=== PATIENT | female | born 1970 | race Two or more races ===

== ENCOUNTER 2024-12-18 18:38 | Inpatient (IN) | payer OTHER ==
[~2024-12-18] VITALS: Ht 162.6 cm; Wt 90.0 kg
--- NOTE | 2024-12-18 18:59 | ED.PDOC ---
HPI Comments Offley: HPI: Poor Historian. 54 y.o female presents to the ED for a chief complaint of substernal chest pain and nausea that started one week ago. Patient describes pain as sharp, intermittent, diffuse across her chest, and worsens with deep inspiration and on movement. Patient denies any SOB, vomiting, fever, chills, or leg swelling. Vitals BP: 127/72 HR: 77 Temp:98.1 F RR: 18 SPO2: 100% RA Past medical history: Depression, Anxiety and arthritis Past surgical history: Hysterectomy Allergies: Denies REVIEW OF SYSTEMS: CONSTITUTIONAL: Denies acute: fever, diaphoresis, chills, generalized weakness. HEAD: Denies acute: headache, photophobia Eyes: Denies acute: Double vision, vision loss, eye pain, eye discharge. EARS: Denies acute: tinnitus, hearing loss, ear discharge, ear pain, THROAT: Denies acute: sore throat, swelling, difficulty swallowing , pain with swallowing, change in voice. NECK: Denies acute: neck pain, neck swelling, stiff neck. HEART: Denies acute : palpitations, LUNGS: Denies acute: SOB, wheezing, cough, hemoptysis ABDOMEN: Denies acute: abdominal pain, Nausea, Vomiting, diarrhea, melena , hematemesis, hematochezia SKIN: Denies acute: rash, redness, lesions, itchiness. EXTREMITIES: Denies acute: calf pain, numbness, tingling, weakness, denies pain in extremity. Denies acute: Low back pain. Neuro: Denies acute: focal neurological deficit, motor or sensory focal neurological deficit, tremors, seizure like activity, confusion, dizziness, change in mental status, loss of bowel or bladder function, cauda equina like symptoms. : Denies acute: dysuria, hematuria, flank pain, increase in urinary frequency. PSYCH: Denies acute: hallucination, suicidal ideation, homicidal ideation. FEMALE: Denies acute: abnormal vaginal bleeding, foul odor, unusual discharge. PHYSICAL EXAM: General: no acute distress, awake and alert. Head: normocephalic, atraumatic. Neck: supple, trachea is midline, no swelling. Throat: Normal phonation. Eyes:, no erythema, no purulent discharge, no proptosis, no icterus. Heart: regular rate, regular rhythm, no significant murmur appreciated. Lungs: no apparent respiratory distress, Able to speak in full sentences. No wheezing, no rhonchi, no crackles. No stridors Clear to auscultation bilaterally. Abdomen: non tender to palpation, non distended, soft, no guarding, no rebound, + bowel sounds. Neuro: Awake, Alert, oriented to name, self, situation, follows commands GCS=15. Speech is normal. Skin: no petechia, no purpura, no cyanosis, non-pale, not jaundice. Lower extremities: --no - Pitting edema no deformity, no focal swelling, no calf TTP. Makes eye contact. moves all four extremities. Face: no apparent facial droop. Ambulating in the ED independently. 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 Was a procedure done?: No CP Differential Dx Differential Diagnosis: N/A Differential Diagnosis: Angina, Chest Wall Pain, Pericarditis, Other (Ddx include but not limitied to gastritis, musculoskeletal pain, radiculopathy, atypical chest pain, dissection, aneurysm, ACS, unstable angina, hiatal hernia, GERD, anxiety, costochondritis, PE, pneumothroax, neoplasm, cardiac ischemia, d rug abuse, anemia.) X-Ray, Labs, Meds, VS Vital Signs Date Time Temp Pulse Resp B/P (MAP) Pulse Ox O2 Delivery O2 Flow Rate FiO2 12/18/24 19:38 68 12/18/24 18:44 78 12/18/24 18:40 98.1 77 18 127/72 (90) 100 Lab Test 12/18/24 19:51 12/18/24 18:51 Range/Units Troponin I High Sensitivity < 3 L < 3 L </=34 ng/L White Blood Count 8.5 4.4-10.8 10^3/uL Red Blood Count 4.36 4.0-5.20 10^6/uL Hemoglobin 12.6 12.2-16.2 g/dL Hematocrit 38.2 36.0-46.0 % Mean Corpuscular Volume 87.7 80.0-100.0 fL Mean Corpuscular Hemoglobin 28.9 28.0-32.0 pg Mean Corpuscular Hemoglobin Concent 33.0 32.0-36.0 g/dL Red Cell Distribution Width 13.0 11.8-14.3 % Platelet Count 231 140-450 10^3/uL Mean Platelet Volume 8.6 6.9-10.8 fL Neutrophils (%) (Auto) 58.0 37.0-80.0 % Lymphocytes (%) (Auto) 33.0 10.0-50.0 % Monocytes (%) (Auto) 7.9 0.0-12.0 % Eosinophils (%) (Auto) 0.6 0.0-7.0 % Basophils (%) (Auto) 0.5 0.0-2.0 % Neutrophils # (Auto) 4.9 1.6-8.6 10 ^3/uL Lymphocytes # (Auto) 2.8 0.4-5.4 10 ^3/uL Monocytes # (Auto) 0.7 0-1.3 10 ^3/uL Eosinophils # (Auto) 0 0-0.8 10 ^3/uL Basophils # (Auto) 0 0-0.2 10 ^3/uL Nucleated Red Blood Cells 0.0 % D-Dimer, Quantitative Pending Sodium Level 141 136-145 mmol/L Potassium Level 4.4 3.5-5.1 mmol/L Chloride Level 106 98-107 mmol/L Carbon Dioxide Level 29 20-31 mmol/L Anion Gap 6 5-15 Blood Urea Nitrogen 7 L 9-23 mg/dL Creatinine 1.11 H 0.550-1.02 mg/dL Glomerular Filtration Rate Calc 59 >90 mL/min BUN/Creatinine Ratio 6.3 L 10.0-20.0 Serum Glucose 95 74-106 mg/dL Lactic Acid Level 1.2 0.4-2.0 mmol/L Calcium Level 9.6 8.7-10.4 mg/dL Total Bilirubin 0.2 0.2-1.0 mg/dL Aspartate Amino Transferase (AST) 15 13-40 U/L Alanine Aminotransferase (ALT) 10 7-40 U/L Alkaline Phosphatase 136 H 46-116 U/L B-Type Natriuretic Peptide 25.22 0-100 pg/mL Total Protein 7.1 5.7-8.2 g/dL Albumin 4.8 3.2-4.8 g/dL Thyroid Stimulating Hormone (TSH) 2.66 0.55-4.78 uIU/mL [place] [address] Ph: [phone] DIAGNOSTIC IMAGING Diagnostic Imaging Report : [id number] Signed PATIENT: ANTONIO JARRETT ACCT: [id number] UNIT: [id number] : 1970 LOC: ER ROOM / BED: / AGE / SEX: 54 / F ADM STATUS: REG ER SERVICE 58 ORDERING PHYSICIAN: DARIUS RAMOS DO PROCEDURE(s): CXRP - CHEST PORTABLE REASON: cp ORDER NUMBER(s): [id number], ACCESSION NUMBER(s): [id number] CHEST RADIOGRAPH Indication: cp Technique: Single frontal view of the chest was obtained COMPARISON: None FINDINGS: Lines and Tubes: None Lungs: Clear Pleura: No effusion. No pneumothorax. Cardiomediastinal contours: Unremarkable Bones: Unremarkable IMPRESSION: No abnormality. ATED BY: RICKY YOUSSEF MD DICTATED DATE/TIME: 12/18/241917 SIGNED BY: RICKY YOUSSEF MD SIGNED DATE/TIME: 12/18/241917 CC: Time of 1ST Reevaluation: 18:57 Reevaluation 1ST: Unchanged Patient Education/Counseling: Diagnosis, Treatment Family Education/Counseling: No Family Present Comments Patient presented with the above HPI.----cardiac--workup was initiated. patient was found with the above mentioned diagnosis. the following medications were ordered: please refer to order lists of meds and tests obtained by myself Dr. Ramos. Patient ED course and VS have been stabilized. Patient has been reassessed in the ED and remained in a stable condition. Pertinent incidental findings were discussed with the patient and/or family. Patient/family voices understanding and is agreeable with plan. Patient has been observed in the ED adequate length of time to insure improvement/stability. Escalation of care considered: Consideration of escalation to observation or admission Patient was ADMITTED to the medicine team for further evaluation and treatment of their presentation. All the reports of any imaging studies that were ordered by myself were reviewed by myself. Departure 1 Departure Time of Disposition: 19:19 Impression: Primary Impression: Chest pain Disposition: ADMITTED INPATIENT Admit to: Tele Condition: Guarded Discharged With: Self Critical Care Note Critical Care Time?: No Heart Score Heart Score: Heart Score Response (Comments) Value History Moderate Suspicious 1 EKG Normal 0 Age 45-64 1 Risk Factors 1 or 2 risk factors 1 Troponin Normal limit 0 Total 3 I personally scribed for DARIUS RAMOS DO ([email or web address]) on 12/18/24 at 18:59. Electronically submitted by Michelle Fierro ([facility]). I personally scribed for DARIUS RAMOS DO ([email or web address]) on 12/18/24 at 21:29. Electronically submitted by Michelle Fierro ([facility]). I personally scribed for DARIUS RAMOS DO ([email or web address]) on 12/18/24 at 21:40. Electronically submitted by Michelle Fierro ([facility]). DARIUS RAMOS DO Dec 18, 2024 18:59
--- NOTE | 2024-12-18 19:21 | DVH ---
CHEST RADIOGRAPH Indication: cp Technique: Single frontal view of the chest was obtained COMPARISON: None FINDINGS: Lines and Tubes: None Lungs: Clear Pleura: No effusion. No pneumothorax. Cardiomediastinal contours: Unremarkable Bones: Unremarkable IMPRESSION: No abnormality.
[2024-12-18 19:27] LABS: Basophils # (auto) 0 10 ^3/uL (0-0.2); Basophils % (auto) 0.5 % (0.0-2.0); Eosinophils # (auto) 0 10 ^3/uL (0-0.8); Eosinophils % (auto) 0.6 % (0.0-7.0); Hematocrit 38.2 % (36.0-46.0); Hemoglobin 12.6 g/dL (12.2-16.2); Lymphocytes # (auto) 2.8 10 ^3/uL (0.4-5.4); Mean Corpuscular Hemoglobin 28.9 pg (28.0-32.0); Mean Corpuscular Volume 87.7 fL (80.0-100.0); Monocytes # (auto) 0.7 10 ^3/uL (0-1.3); Monocytes % (auto) 7.9 % (0.0-12.0); Neutrophils # (auto) 4.9 10 ^3/uL (1.6-8.6); Platelet Count (auto) 231 10^3/uL (140-450); Red Blood Cells 4.36 10^6/uL (4.0-5.20); White Blood Cell 8.5 10^3/uL (4.4-10.8)
[2024-12-18 19:39] LABS: Alanine Aminotransferase 10 U/L (7-40); Albumin 4.8 g/dL (3.2-4.8); Anion Gap 6 (5-15); Aspartate Aminotransferase 15 U/L (13-40); BUN/Creatinine Ratio 6.3 (10.0-20.0); Calcium 9.6 mg/dL (8.7-10.4); Carbon Dioxide 29 mmol/L (20-31); Chloride 106 mmol/L (98-107); Glucose 95 mg/dL (74-106); Potassium 4.4 mmol/L (3.5-5.1); Sodium 141 mmol/L (136-145); Total Protein 7.1 g/dL (5.7-8.2)
[2024-12-18 19:41] LABS: Alkaline Phosphatase 136 U/L (46-116); Bilirubin, Total 0.2 mg/dL (0.2-1.0); Blood Urea Nitrogen 7 mg/dL (9-23)
[2024-12-18] MEDS: NITROGLYCERIN 0.4 MG SL TAB SL ONE (23:30)
[2024-12-18] MEDS: ASPirin 325 MG TAB PO ONE (23:31)
[2024-12-18] MEDS: KETOROLAC TROMETH 30 MG/ML 1ML VIAL IV PRN (23:31)
[2024-12-18] MEDS: ACETAMINOPHEN 325 MG TAB PO PRN (23:32)
[2024-12-18 23:44] VITALS: PULSE 61; RESP 16; O2SAT 100
--- NOTE | 2024-12-19 00:21 | DVHHPRES ---
History of Present Illness Resident Creating Document: ANANYA RANDOLPH RESIDENT Reason for Visit: chest pain History of Present Illness A 54-year-old female with a past medical history of depression, and arthritis presents to the ED with midsternal pain and nausea that began 7 days ago. The pain is described as sharp and worsened by deep inspiration and movement. She states SOB due to the pain, no decline in functional class, no orthopnea, no PND She has been taking duloxetine and pregabalin and was recently on amoxicillin at home. Past Medical History: Depression Arthritis Past Surgical History: Hysterectomy Medications: Duloxetine Pregabalin Recent course of amoxicillin Review of Systems Constitutional: No: Fever, Chills, Sweats, Weakness, Malaise, Other Eyes: No: Pain, Vision change, Conjunctivae inflammation, Eyelid inflammation, Other, Redness ENT: No: Ear pain, Ear discharge, Nose pain, Nose discharge, Nose congestion, Mouth pain, Mouth swelling, Throat pain, Throat swelling, Other Respiratory: No: Cough, Dry, Shortness of breath, SOB with excertion, Wheezing, Hemoptysis, Pleuritic Pain, Sputum, Wheezing, Other Cardiovascular: Chest Pain; No: Palpitations, Orthopnea, Paroxysmal Noc. Dyspnea, Edema, Lt Headedness, Other Gastrointestinal: No: Nausea, Vomiting, Abdominal Pain, Diarrhea, Constipation, Melena, Hematochezia, Other Genitourinary: No Dysuria, No Frequency, No Incontinence, No Hematuria, No Retention, No Other Musculoskeletal: No: other, neck pain, shoulder pain, arm pain, back pain, hand pain, leg pain, foot pain Skin: No: Rash, Lesions, Jaundice, Bruising, Other Neurological: No: Weakness, Numbness, Incoordination, Change in speech, Confusion, Seizures, Other Allergies: Coded Allergies: NO KNOWN ALLERGIES (Unverified , 12/18/24) Medications Current Medications Medications Dose Ordered Sig/Nidia Route Start Time Stop Time Status Last Admin Dose Admin Ketorolac Tromethamine 15 mg Q8HPRN PRN IV 12/18/24 22:00 12/23/24 21:59 12/18/24 23:31 15 MG Acetaminophen 650 mg TIDPRN PRN PO 12/18/24 22:00 12/18/24 23:32 650 MG Exam Vital Signs Vital Signs Date Time Temp Pulse Resp B/P (MAP) Pulse Ox O2 Delivery O2 Flow Rate FiO2 12/18/24 23:44 61 16 100 Room Air* 0 21 12/18/24 23:42 98.1 113/74 (87) 98.1 Exam General: No acute distress. Cardiovascular: Regular rate and rhythm, no murmurs. Pulmonary: Lungs clear to auscultation bilaterally. No rales, rhonchi, or wheezes. Musculoskeletal: Tenderness over the mid-sternum to palpation. No visible swelling or erythema. Neurologic: No focal deficits. Labs/Xrays Labs Test 12/18/24 21:52 12/18/24 18:51 Range/Units Troponin I High Sensitivity < 3 L </=34 ng/L White Blood Count 8.5 4.4-10.8 10^3/uL Red Blood Count 4.36 4.0-5.20 10^6/uL Hemoglobin 12.6 12.2-16.2 g/dL Hematocrit 38.2 36.0-46.0 % Mean Corpuscular Volume 87.7 80.0-100.0 fL Mean Corpuscular Hemoglobin 28.9 28.0-32.0 pg Mean Corpuscular Hemoglobin Concent 33.0 32.0-36.0 g/dL Red Cell Distribution Width 13.0 11.8-14.3 % Platelet Count 231 140-450 10^3/uL Mean Platelet Volume 8.6 6.9-10.8 fL Neutrophils (%) (Auto) 58.0 37.0-80.0 % Lymphocytes (%) (Auto) 33.0 10.0-50.0 % Monocytes (%) (Auto) 7.9 0.0-12.0 % Eosinophils (%) (Auto) 0.6 0.0-7.0 % Basophils (%) (Auto) 0.5 0.0-2.0 % Neutrophils # (Auto) 4.9 1.6-8.6 10 ^3/uL Lymphocytes # (Auto) 2.8 0.4-5.4 10 ^3/uL Monocytes # (Auto) 0.7 0-1.3 10 ^3/uL Eosinophils # (Auto) 0 0-0.8 10 ^3/uL Basophils # (Auto) 0 0-0.2 10 ^3/uL Nucleated Red Blood Cells 0.0 % D-Dimer, Quantitative 0.43 0.0-0.49 mg/L FEU Sodium Level 141 136-145 mmol/L Potassium Level 4.4 3.5-5.1 mmol/L Chloride Level 106 98-107 mmol/L Carbon Dioxide Level 29 20-31 mmol/L Anion Gap 6 5-15 Blood Urea Nitrogen 7 L 9-23 mg/dL Creatinine 1.11 H 0.550-1.02 mg/dL Glomerular Filtration Rate Calc 59 >90 mL/min BUN/Creatinine Ratio 6.3 L 10.0-20.0 Serum Glucose 95 74-106 mg/dL Lactic Acid Level 1.2 0.4-2.0 mmol/L Calcium Level 9.6 8.7-10.4 mg/dL Total Bilirubin 0.2 0.2-1.0 mg/dL Aspartate Amino Transferase (AST) 15 13-40 U/L Alanine Aminotransferase (ALT) 10 7-40 U/L Alkaline Phosphatase 136 H 46-116 U/L B-Type Natriuretic Peptide 25.22 0-100 pg/mL Total Protein 7.1 5.7-8.2 g/dL Albumin 4.8 3.2-4.8 g/dL Thyroid Stimulating Hormone (TSH) 2.66 0.55-4.78 uIU/mL Assessment/Plan Assessment/Plan 54-year-old female with a past medical history of hypertension, depression, and arthritis presenting with pleuritic chest pain and nausea. EKG: av block type 1 prolonged MD Ddimer neg Troponin neg #Chest pain #Rule out PE #Rule out ACS #AV block type 1 #Depression #Anxiety Admit NSAIDS and tylenol for pain control Aspirin already given Continue duloxetine and gabapentin Case discussed with Dr Brambila Plan discussed with: Patient, Other (rn) My Orders Orders - ANANYA RANDOLPH Procedure Category Date Status Time Admit ADMIT 12/18/24 Transmitted 20:45 Cardiac DIET 12/19/24 Transmitted Diet-2gna,Lofat,Lochol Breakfast Ketorolac Injection PHA 12/18/24 In Process (Toradol Injection) 22:00 Acetaminophen Tablet PHA 12/18/24 In Process (Tylenol Tablet) 22:00 Date of Service: Dec 18, 2024 Billing Provider: MAGY BRAMBILA MD Common Visit Codes: [id number] INP/OBS CARE (HIGH) GOREANANYA ROBERT Dec 19, 2024 00:21 MAGY BRAMBILA MD Dec 19, 2024 10:18
[2024-12-19 01:02] VITALS: BP 117/72; PULSE 60; RESP 16; TEMP 98.1; O2SAT 98
[2024-12-19 01:09] VITALS: BP 117/72; PULSE 60; RESP 16; TEMP 98.1; O2SAT 98
[2024-12-19] MEDS ORDERED: PREG50CA PO (01:41)
[2024-12-19] MEDS ORDERED: IBU600T PO (01:41)
[2024-12-19] MEDS ORDERED: CYCL-839 PO (01:41)
[2024-12-19 01:51] LABS: Urine Bacteria MANY /hpf (None Seen); Urine Blood Negative /uL (Negative); Urine Clarity Clear (Clear); Urine Color Light-Yellow (Yellow); Urine Protein, UAD Negative (Negative); Urine Specific Gravity 1.009 (1.001-1.035); Urine Squamous Epithelial Cell FEW /hpf (<5); Urine Urobilinogen Normal (Negative); Urine WBC 4 /HPF (0-5)
[2024-12-19 05:00] VITALS: BP 106/55; PULSE 58; RESP 16; TEMP 97.9; O2SAT 99
--- NOTE | 2024-12-19 05:40 | ECG ---
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
--- NOTE | 2024-12-19 05:41 | ECG ---
[facility] Test Date: 2024-12-18 Test Time: 21:44:24 Pat Name: ANTONIO JARRETT Department: ED Room: [address] [place] [address] A Gender: F Process Coordinator: ALISIA : 1970 Requested By: DARIUS RAMOS Order Number: [id number] Reading MD: Rusty Agudelo Measurements Intervals [place] Rate: 62 P: 39 CT: 178 QRS: -17 QRSD: 84 T: 0 QT: 414 QTc: 421 Interpretive Statements Sinus rhythm Inferior infarct, old Electronically Signed On 12-23-2024 17:27:52 PST by Rusty Agudelo Please click the below link to view image of tracing.
[2024-12-19 07:38] LABS: Basophils # (auto) 0 10 ^3/uL (0-0.2); Basophils % (auto) 0.4 % (0.0-2.0); Eosinophils # (auto) 0.1 10 ^3/uL (0-0.8); Eosinophils % (auto) 0.9 % (0.0-7.0); Hemoglobin 12.3 g/dL (12.2-16.2); Mean Corpuscular Hemoglobin 29.4 pg (28.0-32.0); Mean Corpuscular Hgb Conc. 33.3 g/dL (32.0-36.0); Mean Corpuscular Volume 88.4 fL (80.0-100.0); Monocytes # (auto) 0.4 10 ^3/uL (0-1.3); Monocytes % (auto) 6.6 % (0.0-12.0); Neutrophils # (auto) 3.6 10 ^3/uL (1.6-8.6); Neutrophils % (auto) 59.1 % (37.0-80.0); Platelet Count (auto) 221 10^3/uL (140-450); Red Blood Cells 4.18 10^6/uL (4.0-5.20); White Blood Cell 6.1 10^3/uL (4.4-10.8)
[2024-12-19 07:43] LABS: Albumin 4.6 g/dL (3.2-4.8); Anion Gap 6 (5-15); BUN/Creatinine Ratio 5.3 (10.0-20.0); Calcium 9.8 mg/dL (8.7-10.4); Carbon Dioxide 28 mmol/L (20-31); Glucose 78 mg/dL (74-106); Potassium 3.7 mmol/L (3.5-5.1); Sodium 142 mmol/L (136-145); Total Protein 7.1 g/dL (5.7-8.2)
[2024-12-19 07:44] LABS: Bilirubin, Total 0.4 mg/dL (0.2-1.0)
[2024-12-19 07:48] LABS: Alanine Aminotransferase < 9 U/L (7-40); Alkaline Phosphatase 118 U/L (46-116); Aspartate Aminotransferase 12 U/L (13-40); Blood Urea Nitrogen 5 mg/dL (9-23); Chloride 108 mmol/L (98-107)
--- NOTE | 2024-12-19 08:07 | ECG ---
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
[2024-12-19 09:00] VITALS: BP 104/66; PULSE 57; RESP 16; TEMP 98.1; O2SAT 100
[2024-12-19 12:50] VITALS: BP 114/71; PULSE 61; RESP 18; TEMP 97.5; O2SAT 100
--- NOTE | 2024-12-19 13:03 | DVHPNRES ---
Progress Note Date Seen: Dec 19, 2024 Resident Creating Document: THANH FOX RESIDENT Medical Necessity Reason Pt with a Central, PICC or Fol: No Subjective Review of Systems Patient is a 54-year-old female with past medical history of anxiety, osteoarthritis, chronic back pain, came in due to chest pain. According to the patient, last week after playing with her grandkids she started experiencing chest pain which she initially attributed to a pulled muscle. Patient notes she has also been experiencing dyspnea for the last 2 weeks, dyspnea scale grade 3. Patient describes the pain as squeezing and intermittent in nature 10/10 at onset, currently 1/10. Patient notes sitting up relieves the pain, pain worsens with lying down flat, denies having similar symptoms in the past. Chest x-ray showed no abnormality. Past surgical history: Hysterectomy Home medications: Duloxetine, pregabalin, Motrin Past Hospitalization: Denies Social & Personal history: Patient lives with family. Denies smoking, denies using alcohol, denies using drugs. Allergies: Denies Patient seen and examined at bedside. Patient is alert and oriented to time, place person and responding to all questions. General: Fatigue, chills Eyes: No Pain, No Vision change, No Conjunctivae inflammation, No Eyelid inflammation, No Other, No Redness ENT: No Ear pain, No Ear discharge, No Nose pain, No Nose discharge, No Nose congestion, No Mouth pain, No Mouth swelling, No Throat pain, No Throat swelling, No Other Cardiovascular: No Chest Pain, No Palpitations, No Orthopnea, No Paroxysmal No Dyspnea, No Edema, No Lt Headedness, No Other Respiratory: No Cough, No Dry, No Shortness of breath, SOB with exertion, No Wheezing, No Hemoptysis, No Pleuritic Pain, No Sputum, No Other Gastrointestinal: Nausea, No Vomiting, No Abdominal Pain, No Diarrhea, No Constipation, No Melena, No Hematochezia, No Other Genitourinary: No Dysuria, No Frequency, No Incontinence, No Hematuria, No Retention, No Other Musculoskeletal: No other, No neck pain, No shoulder pain, No arm pain, No back pain, No hand pain, No leg pain, No foot pain Skin: No Rash, No Lesions, No Jaundice, No Bruising, No Other Objective vital signs Vital Sign Date Time Temp Pulse Resp B/P (MAP) Pulse Ox O2 Delivery O2 Flow Rate FiO2 3/4/25 09:00 98.1 57 16 104/66 (79) 100 98.1 12/19/24 01:07 Room Air* 0 21 Total Intake and Output 12/18/24 12/18/24 12/19/24 15:00 23:00 07:00 Intake Total 240 ml Balance 240 ml medications Current Medications Medications Dose Ordered Sig/Nidia Route Start Time Stop Time Status Last Admin Dose Admin Ketorolac Tromethamine 15 mg Q8HPRN PRN IV 12/18/24 22:00 12/23/24 21:59 12/19/24 07:58 15 MG Acetaminophen 650 mg TIDPRN PRN PO 12/18/24 22:00 12/18/24 23:32 650 MG Ibuprofen 400 mg Q8H PO 12/19/24 12:30 UNV Acetaminophen 650 mg Q8H PO 12/19/24 12:30 UNV Pantoprazole Sodium 40 mg DAILY IV 12/20/24 10:00 UNV Examination General Appearance: Cooperative. Well developed. Well nourished. NAD Head Exam: Normal inspection Neck Exam: Normal inspection. Non-tender. Normal alignment Pulmonary/Respiratory: Chest tender to palpation. Clear bilateral breath sounds, no crackles, no wheezing. Cardiovascular/Chest: Regular rate and rhythm. No murmurs. No JVD. Peripheral Pulses: 2+ Radial (R). 2+ Radial (L). 2+ Pedal (R). 2+ Pedal (L) Abdominal Exam: Normal bowel sounds. Soft. normal abdomen, no visible veins, Nontender. No hepatospenomegaly. No masses Ankle Exam: Negative ankle edema Lower extremities: Negative lower extremity edema Neuro/Mental Status: A&O x4. Coherent. Thoughts/Psych: Normal thought pattern. Appropriate mood and affect. Good judgement and insight Skin Exam: Normal inspection. Normal color. Warm. Dry laboratory and microbiology Laboratory Tests 12/19/24 06:06 Test 12/19/24 06:06 Range/Units Serum Glucose 78 74-106 mg/dL Labs and/or images reviewed: Labs reviewed by me, Image(s) reviewed by me Problem List/Assessment/Plan Problem List/Assessment/Plan Chest pain due to ACS vs musculoskeletal Ruling out ACS - EKG: No ST elevation - serial troponins <3, <3, <3 - ordered echocardiogram - aspirin 325 mg p.o. once - ibuprofen 400 mg, acetaminophen 650 mg Q 8 hours Osteoarthritis - ibuprofen 400 mg - pregabalin 25 mg b.i.d. PUD prophylaxis: protonix 40mg Goals of care: Full code, discussed for >16 minutes on 12/19/2024 Plan discussed with patient Plan discussed with Dr. Dhaliwal Plan discussed with: Patient, Other (RN) My Orders My Orders Orders - THANH FOX RESIDENT Procedure Category Date Status Time Ibuprofen Tablet PHA 12/19/24 Logged (Motrin Tablet) 12:30 Acetaminophen Tablet PHA 12/19/24 Logged (Tylenol Tablet) 12:30 Pantoprazole PHA 12/20/24 Logged (Protonix) 10:00 THANH FOX RESIDENT Dec 19, 2024 13:03
[2024-12-19] MEDS: IBUPROFEN 400 MG TAB PO SCH (14:02)
[2024-12-19] MEDS: ACETAMINOPHEN 325 MG TAB PO SCH (14:02)
[2024-12-19 17:00] VITALS: BP 109/74; PULSE 60; RESP 19; TEMP 98.1; O2SAT 100
[2024-12-19] MEDS: LORazepam 0.5 MG TAB PO ONE (18:22)
[2024-12-19] MEDS ORDERED: PREGABALIN 25 MG CAP PO SCH (22:00)
--- NOTE | 2024-12-20 06:22 | DVHDSRES ---
Discharge Summary Date of Admission Resident Creating Document: THANH FOX RESIDENT Dec 18, 2024 at 20:45 Date of Discharge: Dec 19, 2024 Admitting Diagnosis Chest pain Labs/Diagnostic Data: Laboratory Results Test 12/19/24 06:06 12/19/24 00:30 12/18/24 21:52 12/18/24 18:51 White Blood Count 6.1 10^3/uL (4.4-10.8) Red Blood Count 4.18 10^6/uL (4.0-5.20) Hemoglobin 12.3 g/dL (12.2-16.2) Hematocrit 37.0 % (36.0-46.0) Mean Corpuscular Volume 88.4 fL (80.0-100.0) Mean Corpuscular Hemoglobin 29.4 pg (28.0-32.0) Mean Corpuscular Hemoglobin Concent 33.3 g/dL (32.0-36.0) Red Cell Distribution Width 13.0 % (11.8-14.3) Platelet Count 221 10^3/uL (140-450) Mean Platelet Volume 8.0 fL (6.9-10.8) Neutrophils (%) (Auto) 59.1 % (37.0-80.0) Lymphocytes (%) (Auto) 33.0 % (10.0-50.0) Monocytes (%) (Auto) 6.6 % (0.0-12.0) Eosinophils (%) (Auto) 0.9 % (0.0-7.0) Basophils (%) (Auto) 0.4 % (0.0-2.0) Neutrophils # (Auto) 3.6 10 ^3/uL (1.6-8.6) Lymphocytes # (Auto) 2.0 10 ^3/uL (0.4-5.4) Monocytes # (Auto) 0.4 10 ^3/uL (0-1.3) Eosinophils # (Auto) 0.1 10 ^3/uL (0-0.8) Basophils # (Auto) 0 10 ^3/uL (0-0.2) Nucleated Red Blood Cells 0.0 % Sodium Level 142 mmol/L (136-145) Potassium Level 3.7 mmol/L (3.5-5.1) Chloride Level 108 mmol/L (98-107) Carbon Dioxide Level 28 mmol/L (20-31) Anion Gap 6 (5-15) Blood Urea Nitrogen 5 mg/dL (9-23) Creatinine 0.94 mg/dL (0.550-1.02) Glomerular Filtration Rate Calc 73 mL/min (>90) BUN/Creatinine Ratio 5.3 (10.0-20.0) Serum Glucose 78 mg/dL (74-106) Calcium Level 9.8 mg/dL (8.7-10.4) Total Bilirubin 0.4 mg/dL (0.2-1.0) Aspartate Amino Transferase (AST) 12 U/L (13-40) Alanine Aminotransferase (ALT) < 9 U/L (7-40) Alkaline Phosphatase 118 U/L (46-116) Total Protein 7.1 g/dL (5.7-8.2) Albumin 4.6 g/dL (3.2-4.8) Urine Color Light-yellow (Yellow) Urine Clarity Clear (Clear) Urine pH 6.0 (5.0-9.0) Urine Specific [place] 1.009 (1.001-1.035) Urine Protein Negative (Negative) Urine Ketones Negative (Negative) Urine Blood Negative /uL (Negative) Urine Nitrite Negative (Negative) Urine Bilirubin Negative (Negative) Urine Urobilinogen Normal mg/dL (Negative) Urine Leukocyte Esterase Negative /uL (Negative) Urine RBC 1 /hpf (0 - 4) Urine Microscopic WBC 4 /HPF (0-5) Urine Squamous Epithelial Cells Few /hpf (<5) Urine Bacteria Many /hpf (None Seen) Urine Glucose Normal mg/dL (Normal) Troponin I High Sensitivity < 3 ng/L (</=34) D-Dimer, Quantitative 0.43 mg/L FEU (0.0-0.49) Lactic Acid Level 1.2 mmol/L (0.4-2.0) B-Type Natriuretic Peptide 25.22 pg/mL (0-100) Thyroid Stimulating Hormone (TSH) 2.66 uIU/mL (0.55-4.78) Other Laboratory Tests 12/19/24 06:06 Brief Hx & Hospital Course: Patient is a 54-year-old female with past medical history of anxiety, osteoarthritis, chronic back pain, came in due to chest pain. According to the patient, last week after playing with her grandkids she started experiencing chest pain which she initially attributed to a pulled muscle. Patient notes she has also been experiencing dyspnea for the last 2 weeks, dyspnea scale grade 3. Patient describes the pain as squeezing and intermittent in nature 10/10 at onset, currently 1/10. Patient notes sitting up relieves the pain, pain worsens with lying down flat, denies having similar symptoms in the past. Chest x-ray showed no abnormality. Hospital course: EKG showed no ST elevation, serial troponins were less than 3, patient was loaded with aspirin 325 mg and also given ibuprofen 400 mg along with acetaminophen 650 mg Q 8 hours scheduled. Echocardiogram was ordered for the patient, however, patient left against medical advice before echocardiogram could be resulted for further evaluation and management could be completed. Condition at Discharge: Undetermined Final Diagnosis/Problems List Chest pain due to ACS vs pericarditis vs musculoskeletal osteoarthritis Discharge Disposition: AMA Discharge Statement: "Patient was advised to return to the ER or call 911 if any headaches, dizziness, shortness of breath, chest pain, abdominal pain, bleeding, fevers, or worsening of medical condition. Patient was counseled about treatment plan, medications, possible side effects, patientverbalized understanding. All questions were answered to the best of my ability. This discharge took greater then 30 minutes in planning, reviewing documentation, counseling the patient, and discussing with other team members." ASSESSMENT ASSESSMENT Assessment THANH FOX RESIDENT Dec 20, 2024 06:21
[2024-12-20] MEDS ORDERED: PANTOPRAZOLE 40 MG/10 ML VIAL INJ IV SCH (10:00)
--- NOTE | 2024-12-20 12:05 | DVHSR ---
APPROVED REPORT EXAM: Two-dimensional and M-mode echocardiogram with Doppler and color Doppler. Blood Pressure: 106/55 mmHg INDICATION Chest Pain RISK FACTORS Height: 5'4", Weight: 198 DIMENSIONS LVDd4.4 (3.8-5.7cm)LA (2D)3.7 (1.9-4.0cm)Aortic Root3.7 (2.0-3.7cm) LVDs2.9 (2.5-4.0cm)LA (MM) (1.9-4.0cm)Aortic Cusp Exc1.9 (1.5-2.0cm) EF (%) 65.0 (55-70%)Rt. Atrium3.9 (1.9-4.0cm)Asc. Aorta cm IVSd1.2 (0.7-1.1cm)RV (D) (1.8-2.4cm) PWd1.2 (0.7-1.1cm) Mitral Valve MitralMitral Stenosis E wave0.77m/sMV Mean GR.mmHg A wave0.75m/sMV Peak GR.mmHg E/A ratio1.02D MVAcm2 DECEL [id number] 1/2 [place] Aortic Valve Aortic ValveAortic Stenosis V11.11m/Jerson Mean GR.3mmHg V21.26m/Jerson Peak GR.6mmHg LVOT Diameter1.9 (1.8-2.4cm)Doppler AVA2.50cm2 Pulmonic Valve V20.84m/s Tricuspid Valve TR Velocity2.33m/s [id number] Conclusion Sinus rhythm. Mild LVH. Normal chamber sizes. Valves are normal. EF of 60% with normal RV function. Dopplers unremarkable. No pericardial effusion masses or vegetations.
[2024-12-21 10:18] LABS: Hepatitis B Surface Antigen Negative (Negative); Hepatitis C Antibody Negative (Negative)
== END 2024-12-19 20:45 | disposition left against medical advice (07) | DRG 207 ==
LOC: ER 18:38 → OVERFLOW 20:45
PROVIDERS: ADMIT Student in an Organized Health Care Education/Training Program; ATTEND Emergency Medicine
DX: I31.9 Disease of pericardium, unspecified (principal); I24.9 Acute ischemic heart disease, unspecified; F32.A Depression, unspecified; G89.29 Other chronic pain; M54.9 Dorsalgia, unspecified; Z53.29 Procedure and treatment not carried out because of patient's decision for other reasons; F41.9 Anxiety disorder, unspecified; Z90.710 Acquired absence of both cervix and uterus; Z79.1 Long term (current) use of non-steroidal anti-inflammatories (NSAID); Z79.899 Other long term (current) drug therapy; M19.90 Unspecified osteoarthritis, unspecified site
CPT/HCPCS: 36415; 71045; 80053; 81001; 83605; 83880; 84443; 84484; 85025; 85379; 86803; 87340; 93005; 93306; G0378; J1885

== ENCOUNTER 2025-02-01 17:30 | Emergency (ER) | payer OTHER ==
[~2025-02-01] VITALS: Ht 162.6 cm; Wt 82.7 kg
[~2025-02-01 17:30] MED LIST: CYCL-839 PO; IBU600T PO; PREG50CA PO
[2025-02-01] MEDS ORDERED: ONDANSETRON HCL 4 MG/2 ML VIAL IV ONE (18:00)
[2025-02-01 18:26] LABS: Basophils # (auto) 0.1 10 ^3/uL (0-0.2); Basophils % (auto) 0.6 % (0.0-2.0); Eosinophils # (auto) 0 10 ^3/uL (0-0.8); Eosinophils % (auto) 0.3 % (0.0-7.0); Hematocrit 40.2 % (36.0-46.0); Hemoglobin 13.2 g/dL (12.2-16.2); Lymphocytes # (auto) 2.1 10 ^3/uL (0.4-5.4); Lymphocytes % (auto) 23.8 % (10.0-50.0); Mean Corpuscular Hemoglobin 28.7 pg (28.0-32.0); Mean Corpuscular Hgb Conc. 32.9 g/dL (32.0-36.0); Mean Corpuscular Volume 87.2 fL (80.0-100.0); Monocytes # (auto) 0.5 10 ^3/uL (0-1.3); Monocytes % (auto) 5.2 % (0.0-12.0); Neutrophils # (auto) 6.1 10 ^3/uL (1.6-8.6); Neutrophils % (auto) 70.1 % (37.0-80.0); Platelet Count (auto) 234 10^3/uL (140-450); Red Blood Cells 4.61 10^6/uL (4.0-5.20); Red Cell Distribution Width 13.3 % (11.8-14.3); White Blood Cell 8.7 10^3/uL (4.4-10.8)
--- NOTE | 2025-02-01 18:43 | DVH ---
EXAM: CT HEAD WITHOUT CONTRAST; DATE: 02/01/2025 06:08 PM HISTORY: R sided headache COMPARISON: None TECHNIQUE: Axial images were obtained and reformatted in coronal and sagittal planes. All CT scans at this medical facility are performed using dose modulation techniques as appropriate t o a performed exam including the following: Automated exposure control was utilized; adjustment of th e MA and/or KV according to patient size; and use of iterative reconstruction technique. CT Dose: CTDI volume is 56.09 mGy. Dose-length product is 899.08 mGy*cm FINDINGS: Supratentorial Region: No evidence for large acute territorial ischemia. No intracranial hemorrhage is noted. Posterior Fossa: No acute abnormality. Brainstem: Unremarkable. Sellar/Suprasellar Region: Unremarkable. Ventricles, Cisterns, Sulci: Age-appropriate. Orbits: Unremarkable. Paranasal Sinuses: Unremarkable. Mastoid Air Cells: Unremarkable. Vasculature: Unremarkable. Bones/Soft Tissues: No acute abnormality. Other: None. IMPRESSION: 1. No acute intracranial process.
[2025-02-01 18:47] LABS: Anion Gap 6 (5-15); Aspartate Aminotransferase 15 U/L (13-40); BUN/Creatinine Ratio 5.8 (10.0-20.0); Bilirubin, Total 0.4 mg/dL (0.2-1.0); Carbon Dioxide 27 mmol/L (20-31); Potassium 3.7 mmol/L (3.5-5.1); Sodium 141 mmol/L (136-145); Total Protein 7.7 g/dL (5.7-8.2)
[2025-02-01 18:48] LABS: Alanine Aminotransferase < 9 U/L (7-40); Alkaline Phosphatase 128 U/L (46-116); Blood Urea Nitrogen 7 mg/dL (9-23); Chloride 108 mmol/L (98-107); Glucose 126 mg/dL (74-106)
--- NOTE | 2025-02-01 18:50 | DVH ---
CHEST RADIOGRAPH Indication: cp Technique: Single frontal view of the chest was obtained Comparison: XY CHEST PORTABLE on DOS: 12/18/24 FINDINGS: Lines and Tubes: None Lungs: No focal consolidation. Pleura: No effusion. No pneumothorax. Cardiomediastinal contours: Unremarkable Bones: No acute osseous abnormality. IMPRESSION: 1. No acute cardiopulmonary disease.
--- NOTE | 2025-02-01 18:59 | ECG ---
[facility] Test Date: 2025-02-01 Test Time: 17:39:02 Pat Name: ANTONIO JARRETT Department: ED Room: Gender: F Digital Imager: ANGLE : 1970 Requested By: YASH RIOJAS Order Number: [id number] Reading MD: Rusty Agudelo Measurements Intervals [place] Rate: 61 P: 39 SD: 174 QRS: -17 QRSD: 104 T: 23 QT: 442 QTc: 446 Interpretive Statements Sinus rhythm Borderline left axis deviation Baseline wander in lead(s) V5,V6 Electronically Signed On 02-02-2025 13:46:01 PDT by Rusty Agudelo Please click the below link to view image of tracing.
[2025-02-01] MEDS ORDERED: HYDR-4902 PO (19:45)
--- NOTE | 2025-02-01 19:46 | ED.PDOC ---
History of Present Illness HPI Comments 54-year-old female with no significant past medical history brought in by self complaining of headache and chest pain. Patient states symptoms have been going on for the past 2 days, are constant, and worse with exertion. Patient notes the pain is in the left upper chest area, radiates to the left neck and head, and is not associated with fever, cough, nausea, vomiting, vision changes, focal weakness, diaphoresis or shortness a breath. She does state she feels fatigued. States she took ibuprofen 800 mg without relief. Chief Complaint: Chest Pain Time Seen by MD: 17:32 Primary Care Provider: MATT Allergies: Coded Allergies: NO KNOWN ALLERGIES (Unverified , 12/18/24) Home Meds Active Scripts Hydrocodone-Acetaminophen (Hydrocodone Bitartrate/AC 5-325 mg) 1 Tab Tab, 1 TAB PO Q6HP PRN, #20 TAB Prov:YASH MESA MD 02/01/25 Reported Medications Cyclobenzaprine Hcl (Cyclobenzaprine Hcl) 10 Mg Tab, 10 MG PO DAILY for 30 Days, MG 12/19/24 Pregabalin (Lyrica) 50 Mg Cap, 25 MG PO BID, CAP 12/19/24 Ibuprofen Micronized (MOTRIN TABLET) 600 Mg Tb, 800 MG PO TID PRN for PAIN SCALE 1 THRU 6, #40 TAB *Black box warning-NSAIDS can increase risk of AZ & hypertension, GI irritation, ulceration, bleed, perferation. Do not use post cardiac surgery. Use short duration/lowest effective dose. 12/19/24 Information Source: Patient Mode of Arrival: Ambulatory Past Medical History PAST MEDICAL HISTORY: Anxiety, Arthritis, Depression Past Medical History (Other): Chronic back pain in pain management Surgical History: Hysterectomy REDIPPER History: No Pertinent REDIPPER History Family History Family History: Reviewed,noncontributory to illness Social History Smoker: Non-Smoker Alcohol: Denies ETOH Use Drugs: Denies Drug Use Lives In: Home All Other Systems: Reviewed and Negative (Comprehensive systems review obtained and negative except for what is stated in the HPI.) Physical Exam General Appearance: Mild Distress HEENT: PERRL/EOMI, Other (Face symmetric. Moist mucous membranes.) Neck: Full Range of Motion, Non-Tender, Normal Inspection, Supple Respiratory: Lungs Clear, No Accessory Muscle Use, No Respiratory Distress, Normal Breath Sounds Cardiovascular: No Edema, No JVD, Regular Rate/Rhythm Breast Exam: Deferred Gastrointestinal: Non Tender, Soft Genitalia: Deferred Pelvic: Deferred Rectal: Deferred Extremities: Normal inspection, Normal range of motion, Non-tender, No pedal edema Neurologic: Alert (Oriented x4), Normal Affect, Normal Mood, Other (Ambulatory without difficulty.) Cerebellar Function: NOT DONE Reflexes: NOT DONE Skin: Dry, Normal Color, Warm Lymphatic: NOT DONE Was a procedure done? Was a procedure done?: No EKG EKG : Comments Sinus rhythm, rate 61, normal intervals, borderline left axis deviation, normal QRS, nonspecific T changes. Differential Dx Considerations may include: Migraine headache, tension headache, vascular headache, metabolic headache, ACS, AZ, arrhythmia, chest wall pain, among others. X-Ray, Labs, Meds, VS Vital Signs Date Time Temp Pulse Resp B/P (MAP) Pulse Ox O2 Delivery O2 Flow Rate FiO2 02/01/25 20:40 51 18 97 Room Air* 0 21 02/01/25 20:40 98.9 51 18 115/73 (87) 97 98.9 02/01/25 17:48 98.9 62 16 139/84 (102) 100 98.9 02/01/25 17:42 61 Lab Test 02/01/25 18:34 02/01/25 17:29 Range/Units Troponin I High Sensitivity < 3 L < 3 L </=34 ng/L White Blood Count 8.7 4.4-10.8 10^3/uL Red Blood Count 4.61 4.0-5.20 10^6/uL Hemoglobin 13.2 12.2-16.2 g/dL Hematocrit 40.2 36.0-46.0 % Mean Corpuscular Volume 87.2 80.0-100.0 fL Mean Corpuscular Hemoglobin 28.7 28.0-32.0 pg Mean Corpuscular Hemoglobin Concent 32.9 32.0-36.0 g/dL Red Cell Distribution Width 13.3 11.8-14.3 % Platelet Count 234 140-450 10^3/uL Mean Platelet Volume 8.6 6.9-10.8 fL Neutrophils (%) (Auto) 70.1 37.0-80.0 % Lymphocytes (%) (Auto) 23.8 10.0-50.0 % Monocytes (%) (Auto) 5.2 0.0-12.0 % Eosinophils (%) (Auto) 0.3 0.0-7.0 % Basophils (%) (Auto) 0.6 0.0-2.0 % Neutrophils # (Auto) 6.1 1.6-8.6 10 ^3/uL Lymphocytes # (Auto) 2.1 0.4-5.4 10 ^3/uL Monocytes # (Auto) 0.5 0-1.3 10 ^3/uL Eosinophils # (Auto) 0 0-0.8 10 ^3/uL Basophils # (Auto) 0.1 0-0.2 10 ^3/uL Nucleated Red Blood Cells 0.0 % Sodium Level 141 136-145 mmol/L Potassium Level 3.7 3.5-5.1 mmol/L Chloride Level 108 H 98-107 mmol/L Carbon Dioxide Level 27 20-31 mmol/L Anion Gap 6 5-15 Blood Urea Nitrogen 7 L 9-23 mg/dL Creatinine 1.20 H 0.550-1.02 mg/dL Glomerular Filtration Rate Calc 54 >90 mL/min BUN/Creatinine Ratio 5.8 L 10.0-20.0 Serum Glucose 126 H 74-106 mg/dL Calcium Level 10.0 8.7-10.4 mg/dL Total Bilirubin 0.4 0.2-1.0 mg/dL Aspartate Amino Transferase (AST) 15 13-40 U/L Alanine Aminotransferase (ALT) < 9 7-40 U/L Alkaline Phosphatase 128 H 46-116 U/L B-Type Natriuretic Peptide 23.21 0-100 pg/mL Total Protein 7.7 5.7-8.2 g/dL Albumin 5.0 H 3.2-4.8 g/dL Current Medications Medications (Trade) Dose Ordered Sig/Nidia Route Start Time Stop Time Status Last Admin Acetaminophen/ Hydrocodone Bitart (Hawkeye 5/325MG Tab) 2 tab ONCE ONCE PO 02/01/25 18:00 02/01/25 18:01 DC 02/01/25 20:47 Ondansetron HCl (Zofran Po) 4 mg ONCE ONCE PO 02/01/25 20:45 02/01/25 20:46 DC 02/01/25 20:47 PROCEDURE(s): HWOCT - HEAD WITHOUT CONTRAST REASON: R sided headache ORDER NUMBER(s): [id number], ACCESSION NUMBER(s): [id number] EXAM: CT HEAD WITHOUT CONTRAST; DATE: 02/01/2025 06:08 PM HISTORY: R sided headache COMPARISON: None TECHNIQUE: Axial images were obtained and reformatted in coronal and sagittal planes. All CT scans at this medical facility are performed using dose modulation techniques as appropriate to a performed exam including the following: Automated exposure control was utilized; adjustment of the MA and/or KV according to patient size; and use of iterative reconstruction technique. CT Dose: CTDI volume is 56.09 mGy. Dose-length product is 899.08 mGy*cm FINDINGS: Supratentorial Region: No evidence for large acute territorial ischemia. No intracranial hemorrhage is noted. Posterior Fossa: No acute abnormality. Brainstem: Unremarkable. Sellar/Suprasellar Region: Unremarkable. Ventricles, Cisterns, Sulci: Age-appropriate. Orbits: Unremarkable. Paranasal Sinuses: Unremarkable. Mastoid Air Cells: Unremarkable. Vasculature: Unremarkable. Bones/Soft Tissues: No acute abnormality. Other: None. IMPRESSION: 1. No acute intracranial process. EDURE(s): CXRP - CHEST PORTABLE REASON: cp ORDER NUMBER(s): [id number], ACCESSION NUMBER(s): [id number] CHEST RADIOGRAPH Indication: cp Technique: Single frontal view of the chest was obtained Comparison: XY CHEST PORTABLE on DOS: 12/18/24 FINDINGS: Lines and Tubes: None Lungs: No focal consolidation. Pleura: No effusion. No pneumothorax. Cardiomediastinal contours: Unremarkable Bones: No acute osseous abnormality. IMPRESSION: 1. No acute cardiopulmonary disease. X-Ray, Labs, Meds, VS Comment 54-year-old female with no significant past medical history complaining of left- sided headache and chest pain. Vitals unremarkable Exam unremarkable Rhythm strip independently interpreted by me: Sinus rhythm, rate 61, no ectopy. CT head unremarkable Chest x-ray unremarkable CBC unremarkable, metabolic panel remarkable for creatinine 1.2, troponin negative x2, BNP normal Patient treated with the following in the ED: Hawkeye 5/325 mg 2 tabs p.o., Zofran 4 mg IV On re-evaluation, patient states pain has improved. Vitals are stable. No focal neurologic deficit on exam. Hospitalization was considered, however patient had rapid improvement of symptoms with treatment in the ED, and I no longer feel hospitalization is necessary. Heart Score is 2. PERC criteria are satisfied. Patient now appears stable for discharge with close outpatient follow-up with her primary physician. Rx Hawkeye Time of 1ST Reevaluation: 19:43 Reevaluation 1ST: Improved Patient Education/Counseling: Diagnosis, Treatment, Need For Follow Up Family Education/Counseling: No Family Present Departure 1 Departure Time of Disposition: 19:43 Impression: Primary Impression: Headache Qualified Codes: R51.9 - Headache, unspecified Additional Impression: Chest pain with low risk for cardiac etiology Disposition: HOME / SELF CARE / HOMELESS Condition: Stable Additional Instructions: Your blood tests, including screening test for heart attack and heart failure, were unremarkable. Your EKG was unremarkable. Your head CT was normal. Your chest x-ray was normal. I have prescribed medication for pain. Follow-up with your primary doctor in 1-2 days for referral to a factory lay out engineer for further evaluation of your chest pain. e-Prescriptions Hydrocodone-Acetaminophen (Hydrocodone Bitartrate/AC 5-325 mg) 1 Tab Tab 1 TAB PO Q6HP PRN, #20 TAB Prov: YASH MESA MD 02/01/25 Discharged With: Relative Critical Care Note Critical Care Time?: No Stability Stability form required: No Heart Score Heart Score: Heart Score Response (Comments) Value History Slightly Suspicious 0 EKG Repolarization Disturb 1 Age 45-64 1 Risk Factors No known risk factors 0 Troponin Normal limit 0 Total 2 YASH MESA MD Feb 01, 2025 19:46
[2025-02-01 20:40] VITALS: BP 115/73; PULSE 51; RESP 18; TEMP 98.9; O2SAT 97
[2025-02-01] MEDS: HYDROcodone-ACET 5/325MG TAB PO ONE (20:47)
[2025-02-01] MEDS: ONDANSETRON ODT 4 MG TAB PO ONE (20:47)
== END 2025-02-01 20:59 | disposition home or self-care (01) ==
LOC: ER 17:30
DX: R51.9 Headache, unspecified (principal); R07.89 Other chest pain; M19.90 Unspecified osteoarthritis, unspecified site; F41.9 Anxiety disorder, unspecified; F32.A Depression, unspecified; G89.29 Other chronic pain; Z90.710 Acquired absence of both cervix and uterus; Z79.899 Other long term (current) drug therapy
CPT/HCPCS: 36415; 70450; 71045; 80053; 83880; 84484; 85025; 93005; 99285; Q0162

== ENCOUNTER 2025-04-02 17:46 | Emergency (ER) | payer OTHER ==
[~2025-04-02] VITALS: Ht 162.6 cm; Wt 80.7 kg
[~2025-04-02 17:46] MED LIST changes: +HYDR-4902 PO
[2025-04-02 18:06] VITALS: BP 123/77
[2025-04-02] MEDS: FLUORESCEIN SOD OPTH TEST STRIP LEFTEYE ONE (18:55)
[2025-04-02] MEDS: FLUORESCEIN SOD OPTH TEST STRIP RIGHTEYE ONE (18:55)
[2025-04-02] MEDS: TETRACAINE HCL 0.5% OPTH(EYE) SOLN 4ML EACHEYE ONE (18:55)
--- NOTE | 2025-04-02 19:01 | ED.PDOC ---
Eye-HPI HPI Comments 54 year old female presents to ER with bilateral eye complaint x 1 week. Patient with PMH significant for Ankylosing Spondylitis states she's been experiencing pain/redness and photophobia to bilateral eyes x 1 week. Patient notes she had similar symptoms 2 years ago that she states her skip locator told her was due to history of ankylosing spondylitis and was told to take ibuprofen at that time. She rates her current pain a 7/10 to bilateral eyes and presents to ER ambulatory on arrival, with steady gait, in no distress. Patient states she is following up with her skip locator at [facility] tomorrow. Denies fever, vision changes, headache, nausea/vomiting or any further symptoms/complaints Chief Complaint: Eye Problem Time Seen by MD: 18:10 Primary Care Provider: DR. GUTIERREZ Reviewed Notes: Nurses Notes, Medications, Allergies Allergies: Coded Allergies: NO KNOWN ALLERGIES (Unverified , 12/18/24) Home Meds Active Scripts Hydrocodone-Acetaminophen (Hydrocodone Bitartrate/AC 5-325 mg) 1 Tab Tab, 1 TAB PO Q6HP PRN, #20 TAB Prov:YASH MESA MD 02/01/25 Reported Medications Cyclobenzaprine Hcl (Cyclobenzaprine Hcl) 10 Mg Tab, 10 MG PO DAILY for 30 Days, MG 12/19/24 Pregabalin (Lyrica) 50 Mg Cap, 25 MG PO BID, CAP 12/19/24 Ibuprofen Micronized (MOTRIN TABLET) 600 Mg Tb, 800 MG PO TID PRN for PAIN SCALE 1 THRU 6, #40 TAB *Black box warning-NSAIDS can increase risk of AK & hypertension, GI irritation, ulceration, bleed, perferation. Do not use post cardiac surgery. Use short duration/lowest effective dose. 12/19/24 Information Source: Patient Mode of Arrival: Ambulatory Past Medical History PAST MEDICAL HISTORY: Anxiety, Arthritis, Depression Past Medical History (Other): Ankylosing Spondylitis Surgical History: Hysterectomy SENIOR GAME ADVISOR History: No Pertinent SENIOR GAME ADVISOR History Family History Family History: Unknown Social History Smoker: Non-Smoker Alcohol: Denies ETOH Use Drugs: Denies Drug Use Lives In: Home Constitutional: denies: chills, diaphoresis, fatigue, fever, malaise, sweats, weakness, others EENTM: reports: others (As stated in HPI) Respiratory: denies: cough, hemoptysis, orthopnea, SOB at rest, shortness of breath, SOB with excertion, stridor, wheezing, others Cardiovascular: denies: chest pain, dizzy spells, diaphoresis, Dyspnea on exertion, edema, irregular heart beat, left arm pain, lightheadedness, palpitations, PND, syncope, others Gastrointestinal: denies: abdomen distended, abdominal pain, blood streaked bowels, constipated, diarrhea, dysphagia, difficulty swallowing, hematemesis, melena, nausea, poor appetite, poor fluid intake, rectal bleeding, rectal pain, vomiting, others Genitourinary: denies: abnormal vagina bleeding, burning, dyspareunia, dysuria, flank pain, frequency, hematuria, incontinence, pain, , vagina discharge, urgency, others Neurological: denies: dizziness, fainting, headache, left sided numbness, left sided weakness, numbness, paresthesia, pre-existing deficit, right sided numbness, right sided weakness, seizure, speech problems, tingling, tremors, weakness, others Musculoskeletal: denies: back pain, gout, joint pain, joint swelling, muscle pain, muscle stiffness, neck pain, others Integumetry: denies: bruises, change in color, change in hair/nails, dryness, laceration, lesions, lumps, rash, wounds, others Allergic/Immunocompromised: denies: Difficulty Healing, Frequent Infections, Hives, Itching, others Hematologic/Lymphatic: denies: anemia, blood clots, easy bleeding, easy bruising, swollen glands, others Endocrine: denies: excessive hunger, excessive sweating, excessive thirst, excessive urination, flushing, intolerance to cold, intolerance to heat, unexplained weight gain, unexplained weight loss, others Psychiatric: denies: anxiety, bipolar disorder, depression, hopeless, panic disorder, schizophrenia, sleepless, suicidal, others Physical Exam General Appearance: No Apparent Distress HEENT: PERRL/EOMI, Pharynx Normal, TMs Normal, Other ([place] examination bilateral eyes- ciliary flush and injection at limbus noted. No drainage/FB noted. + Photophobia bilaterally. Visual acuity right eye- 20/50, visual acuity left eye- 20/50, visual acuity using both eyes 20/50) Neck: Full Range of Motion, Non-Tender, Normal Respiratory: Chest Non-Tender, Lungs Clear, No Accessory Muscle Use, No Respiratory Distress, Normal Breath Sounds Cardiovascular: No Murmur, No Gallop, Regular Rate/Rhythm Breast Exam: Deferred Gastrointestinal: NOT DONE Genitalia: Deferred Pelvic: Deferred Rectal: Deferred Extremities: Normal capillary refill, Normal range of motion Neurologic: Alert, machine set up technician II-XII nml as Tested, No Motor Deficits, Normal Affect, Normal Mood, No Sensory Deficits Cerebellar Function: Normal Reflexes: Normal Skin: Dry, Normal Color, Warm Lymphatic: No Adenopathy Was a procedure done? Was a procedure done?: No Sedation Sedation?: No EENT DIFF Eye: Corneal Abrasion, Corneal Ulceration, Glaucoma, Orbital Cellulits, Per iorbital Cellulits, Virtreous Hemorrhage X-Ray, Labs, Meds, VS Vital Signs Date Time Temp Pulse Resp B/P (MAP) Pulse Ox O2 Delivery O2 Flow Rate FiO2 04/02/25 19:26 Room Air* 0 21 04/02/25 19:22 98.3 76 18 98 98.3 04/02/25 18:06 99.5 103 15 123/77 (92) 98 99.5 Current Medications Medications (Trade) Dose Ordered Sig/Nidia Route Start Time Stop Time Status Last Admin Fluorescein Sodium (Ful-Yasmin) 1 mg ONCE ONCE LEFTEYE 04/02/25 19:00 04/02/25 19:01 DC 04/02/25 18:55 Fluorescein Sodium (Ful-Yasmin) 1 mg ONCE ONCE RIGHTEYE 04/02/25 19:00 04/02/25 19:01 DC 04/02/25 18:55 Tetracaine HCl (Tetracaine 0.5% Opt Soln) 1 drop ONCE ONCE EACHEYE 04/02/25 19:00 04/02/25 19:01 DC 04/02/25 18:55 Acetaminophen/ Hydrocodone Bitart ([place] 5/325MG Tab) 1 tab ONCE ONCE PO 04/02/25 19:30 04/02/25 19:31 DC 04/02/25 19:25 Ondansetron HCl (Zofran Po) 4 mg ONCE ONCE PO 04/02/25 19:30 04/02/25 19:31 DC 04/02/25 19:25 Fluorescein stain ophthalmic ordered Tetracaine ophthalmic ordered [place] 5/325 mg p.o. ordered Zofran 4 mg p.o. ordered Advised on strict follow-up with ophthalmology as soon as possible- Patient verbalized understanding and states she is following up with Ophthalmology tomorrow morning Advised to follow up with PCP in 1-2 days Patient verbalized understanding and agreeable with current plan of care Advised to return to ER immediately if symptoms worsen Time of 1ST Reevaluation: 19:00 Reevaluation 1ST: N/A Patient Education/Counseling: Diagnosis, Treatment, Prognosis, Need For Follow Up Family Education/Counseling: No Family Present SEPSIS Sepsis Screen Date sepsis recognized/suspect: Apr 02, 2025 Time Sepsis recognized/suspect: 1749 Recent Procedure: No On Antibiotic Therapy: No Respiratory Rate >20: No Heart Rate >90: Yes Temp<36 C (96.8 F) or >38.3 C: No SBP <90 or MAP <65 mmHG: No New Acute Mental Status Change: No Is the patient on CPAP, BIPAP,: No Orders/Vitals/Labs Vital Signs Date Time Temp Pulse Resp B/P (MAP) Pulse Ox O2 Delivery O2 Flow Rate FiO2 04/02/25 19:26 Room Air* 0 21 04/02/25 19:22 98.3 76 18 98 98.3 04/02/25 18:06 99.5 103 15 123/77 (92) 98 99.5 Medications Medications Dose Ordered Sig/Nidia Route Start Time Stop Time Status Last Admin Dose Admin Acetaminophen/ Hydrocodone Bitart 1 tab ONCE ONCE PO 04/02/25 19:30 04/02/25 19:31 DC 04/02/25 19:25 Fluorescein Sodium 1 mg ONCE ONCE LEFTEYE 04/02/25 19:00 04/02/25 19:01 DC 04/02/25 18:55 Fluorescein Sodium 1 mg ONCE ONCE RIGHTEYE 04/02/25 19:00 04/02/25 19:01 DC 04/02/25 18:55 Ondansetron HCl 4 mg ONCE ONCE PO 04/02/25 19:30 04/02/25 19:31 DC 04/02/25 19:25 Tetracaine HCl 1 drop ONCE ONCE EACHEYE 04/02/25 19:00 04/02/25 19:01 DC 04/02/25 18:55 Departure 1 Departure Time of Disposition: 19:14 Impression: Primary Impression: Acute anterior uveitis of both eyes Disposition: HOME / SELF CARE / HOMELESS Condition: Stable Discharged With: Friend Critical Care Note Critical Care Time?: No Stability Stability form required: No Heart Score Heart Score: Heart Score Response (Comments) Value History N/A 0 EKG N/A 0 Age N/A 0 Risk Factors N/A 0 Troponin N/A 0 Total 0 KATHERIN RIOS Apr 02, 2025 19:01
[2025-04-02 19:22] VITALS: PULSE 76; RESP 18; TEMP 98.3; O2SAT 98
[2025-04-02] MEDS: ONDANSETRON ODT 4 MG TAB PO ONE (19:25)
[2025-04-02] MEDS: HYDROcodone-ACET 5/325MG TAB PO ONE (19:25)
== END 2025-04-02 19:42 | disposition home or self-care (01) ==
LOC: ER 17:46
DX: H20.00 Unspecified acute and subacute iridocyclitis (principal); F41.9 Anxiety disorder, unspecified; M19.90 Unspecified osteoarthritis, unspecified site; Z79.899 Other long term (current) drug therapy; Z90.710 Acquired absence of both cervix and uterus
CPT/HCPCS: 99284; Q0162